=== PATIENT | male | born 1960 | race Caucasian/White ===

== ENCOUNTER 2024-02-03 12:31 | Inpatient (IN) | payer MEDICAID ==
[~2024-02-03] VITALS: Ht 167.6 cm; Wt 74.8 kg
[~2024-02-03 12:31] MED LIST: ASPI-1406 PO; ATOR20TA MT; CLOP75TA33 PO; DULA1.5P SUBCUT; GABA-532 MT; METF-416 PO; SULF1TAB48 MT
[2024-02-03 12:34] VITALS: O2SAT 98
[2024-02-03 13:32] LABS: BASOPHILS % 0.9 % (0.0-2.0); EOSINOPHILS % 4.9 % (0.0-5.0); HEMATOCRIT. 30.7 % (42.0-52.0); HEMOGLOBIN. 10.2 g/dL (14.0-18.0); LYMPHOCYTES % 23.9 % (20.0-50.0); MEAN CORPUSCULAR HEMOGLOBIN 29.9 pg (28.0-32.0); MEAN CORPUSCULAR HGB CONC 33.2 g/dL (31.0-37.0); MEAN CORPUSCULAR VOLUME 90.1 fL (80.0-94.0); MEAN PLATELET VOLUME 7.7 fl (7.4-10.4); MONOCYTES % 6.8 % (2.0-8.0); NEUTROPHILS % 63.5 % (40.0-76.0); PLATELET 344 x1000/uL (130-400); RED BLOOD CELL COUNT 3.41 mill/uL (4.7-6.1); RED CELL DISTRIBUTION WIDTH 13.3 % (11.6-14.6); WHITE BLOOD COUNT 9.2 x1000/uL (4.5-11.0)
[2024-02-03 13:38] LABS: POTASSIUM 4.3 mEq/L (3.5-5.1)
[2024-02-03 13:39] LABS: CALCIUM 9.3 mg/dL (8.7-10.4)
[2024-02-03 14:02] LABS: CREATININE 2.7 mg/dL (0.6-1.3)
[2024-02-03] MEDS ORDERED: ACETAMINOPHEN 325MG TABLET PO PRN ×2 (15:30)
[2024-02-03] MEDS ORDERED: ONDANSETRON HCL 4MG/2ML INJ IV PRN (15:30)
[2024-02-03] MEDS ORDERED: DULA0.75 SUBCUT (15:40)
[2024-02-03] MEDS: CEFTRIAXONE 2GM/50ML 50 ML IV SCH (16:12)
[2024-02-03] MEDS ORDERED: DEXTROSE 50% WATER 50ML SYRINGE IV PRN (16:30)
[2024-02-03] MEDS ORDERED: HYDRALAZINE 20MG/ML VIAL IV PRN (16:30)
[2024-02-03] MEDS: GABAPENTIN 300MG CAPSULE PO SCH (17:00)
[2024-02-03 20:00] VITALS: BP 186/91; PULSE 73; RESP 18; TEMP 36.55848; O2SAT 98
[2024-02-03] MEDS: ATORVASTATIN CALCIUM 20MG TABLET PO SCH (20:19)
[2024-02-03] MEDS ORDERED: LISINOPRIL 10MG TABLET PO SCH (21:00)
[2024-02-03] MEDS: BLOOD SUGAR DIAGNOSTIC STRIP TEST SCH (21:56)
[2024-02-03] MEDS ORDERED: HYDRALAZINE HCL 25MG TABLET PO SCH (22:00)
[2024-02-03] MEDS: INSULIN LISPRO 100 UNITS/ML SUBCUT SCH (22:20)
[2024-02-03] MEDS: HYDRALAZINE 10 MG in SODIUM CHLORIDE 0.9% 49.5 ML IV PRN (22:21)
[2024-02-04 04:00] VITALS: BP 155/83; PULSE 84; RESP 19; TEMP 37.11408; O2SAT 97
[2024-02-04 07:49] LABS: BASOPHILS % 0.7 % (0.0-2.0); EOSINOPHILS % 4.9 % (0.0-5.0); HEMOGLOBIN. 9.9 g/dL (14.0-18.0); LYMPHOCYTES % 19.7 % (20.0-50.0); MEAN CORPUSCULAR HEMOGLOBIN 31.4 pg (28.0-32.0); MEAN CORPUSCULAR HGB CONC 35.2 g/dL (31.0-37.0); MEAN CORPUSCULAR VOLUME 89.2 fL (80.0-94.0); MONOCYTES % 8.3 % (2.0-8.0); NEUTROPHILS % 66.4 % (40.0-76.0); PLATELET 346 x1000/uL (130-400); RED BLOOD CELL COUNT 3.14 mill/uL (4.7-6.1); WHITE BLOOD COUNT 8.6 x1000/uL (4.5-11.0)
[2024-02-04 07:58] LABS: CARBON DIOXIDE 24 mEq/L (21-32); CHLORIDE 111 mEq/L (98-107); SODIUM 143 mEq/L (136-145)
[2024-02-04 07:59] LABS: CALCIUM 9.1 mg/dL (8.7-10.4)
[2024-02-04 08:00] VITALS: BP 145/77; PULSE 80; RESP 18; TEMP 36.89184; O2SAT 96
[2024-02-04 08:03] LABS: IRON 50 ug/dL (65-175)
[2024-02-04 08:04] LABS: CREATININE 2.6 mg/dL (0.6-1.3); GLUCOSE 163 mg/dL (70-105); UREA NITROGEN BLOOD 25 mg/dL (9-23)
[2024-02-04 08:06] LABS: PHOSPHORUS 3.3 mg/dL (2.5-4.9); TOTAL IRON BINDING CAPACITY 285 ug/dl (250-425)
[2024-02-04] MEDS: ASPIRIN 81MG EC TABLET PO SCH (10:03)
[2024-02-04] MEDS: CLOPIDOGREL 75MG TABLET PO SCH (10:03)
[2024-02-04] MEDS: AMLODIPINE 10MG TABLET PO SCH (10:04)
[2024-02-04] MEDS: LISINOPRIL 10MG TABLET PO SCH (10:04)
[2024-02-04] MEDS: MAGNESIUM 2 G PREMIX 50 ML IV NR (10:43)
[2024-02-04 12:00] VITALS: BP 157/82; PULSE 82; RESP 18; TEMP 36.72516; O2SAT 97
[2024-02-04] MEDS ORDERED: LISINOPRIL 10MG TABLET PO SCH (12:30)
[2024-02-04] MEDS: SODIUM CHLORIDE 0.9% 1,000 ML IV SCH (14:39)
[2024-02-04] MEDS: ENOXAPARIN 30MG/0.3ML SYR SUBCUT SCH (15:46)
[2024-02-04 16:00] VITALS: BP 156/84; PULSE 76; RESP 18; TEMP 36.72516; O2SAT 97
[2024-02-04] MEDS: CEFTRIAXONE 2GM/50ML 50 ML IV SCH (17:35)
[2024-02-04 20:00] VITALS: BP 143/76; PULSE 76; RESP 17; TEMP 36.78072; O2SAT 98
[2024-02-04] MEDS: HYDRALAZINE HCL 10MG TABLET PO SCH (20:31)
[2024-02-05] VITALS: BP 145/74; PULSE 73; RESP 19; TEMP 36.78072; O2SAT 99
[2024-02-05 01:06] LABS: CLARITY URINE CLEAR (CLEAR); COLOR URINE YELLOW (YELLOW); GLUCOSE URINE NEGATIVE (NEGATIVE); KETONES URINE NEGATIVE (NEGATIVE); LEUKOCYTE ESTERASE URINE NEGATIVE (NEGATIVE); NITRITE URINE NEGATIVE (NEGATIVE); OCCULT BLOOD URINE NEGATIVE (NEGATIVE); PROTEIN URINE 1+ (NEGATIVE); UROBILINOGEN URINE 0.2 E.U./dL (0.2-1.0)
[2024-02-05 01:19] LABS: SODIUM URINE RANDOM 106 mEq/L; WBC URINE 0-2 /hpf (0-2)
[2024-02-05 01:20] LABS: BACTERIA URINE NONE SEEN; RBC URINE 0-2 /hpf (0-2); SQUAMOUS EPITHELIAL CELL URINE NONE SEEN /lpf (RARE/1+)
[2024-02-05 01:26] LABS: *AMPHETAMINES SCREEN URINE NEGATIVE (NEGATIVE); *BARBITURATES SCREEN URINE NEGATIVE (NEGATIVE); *BENZODIAZEPINES SCREEN URINE NEGATIVE (NEGATIVE); *COCAINE SCREEN URINE NEGATIVE (NEGATIVE); CANNABINOID URINE SCREEN NEGATIVE (NEGATIVE); CREATININE URINE RANDOM 57.7 mg/dL; ECSTASY MDMA SCREEN URINE NEGATIVE (NEGATIVE); METHADONE URINE SCREEN NEGATIVE (NEGATIVE); OPIATES URINE SCREEN NEGATIVE (NEGATIVE); PHENCYCLIDINE URINE SCREEN NEGATIVE (NEGATIVE)
[2024-02-05 01:40] LABS: OSMOLALITY URINE 364 mOsm/kg (500-850)
[2024-02-05 04:00] VITALS: BP 159/83; PULSE 79; RESP 20; TEMP 37.00296; O2SAT 97
[2024-02-05] MEDS ORDERED: CEFT2VIA13 IV (04:53)
[2024-02-05 07:17] LABS: POTASSIUM 3.7 mEq/L (3.5-5.1)
[2024-02-05 07:18] LABS: CALCIUM 8.2 mg/dL (8.7-10.4)
[2024-02-05 07:19] LABS: HEMATOCRIT 27.2 % (42.0-52.0); HEMOGLOBIN 9.3 g/dL (14.0-18.0); MEAN CORPUSCULAR HEMOGLOBIN 30.5 pg (28.0-32.0); MEAN CORPUSCULAR HGB CONC 34.1 g/dL (31.0-37.0); MEAN CORPUSCULAR VOLUME 89.5 fL (80.0-94.0); PLATELET 326 x1000/uL (130-400); RED BLOOD CELL COUNT 3.03 mill/uL (4.7-6.1); WHITE BLOOD COUNT 8.1 x1000/uL (4.5-11.0)
[2024-02-05 07:22] LABS: CREATININE 2.4 mg/dL (0.6-1.3)
[2024-02-05 08:00] VITALS: BP 162/77; PULSE 76; RESP 20; TEMP 36.114; O2SAT 100
[2024-02-05 12:00] VITALS: BP 138/77; PULSE 77; RESP 20; TEMP 36.6696; O2SAT 100
[2024-02-05 16:00] VITALS: BP 147/74; PULSE 76; RESP 20; TEMP 36.22512; O2SAT 99
[2024-02-05 20:00] VITALS: BP 138/88; PULSE 82; RESP 18; TEMP 36.22512; O2SAT 98
[2024-02-06] VITALS: BP 152/77; PULSE 80; RESP 18; TEMP 36.114; O2SAT 100
[2024-02-06 04:00] VITALS: BP 167/82; PULSE 83; RESP 18; TEMP 36.28068; O2SAT 97
[2024-02-06] MEDS: CLONIDINE 0.1MG TABLET PO PRN (04:51)
[2024-02-06 05:00] VITALS: BP 128/59
== END 2024-02-06 10:00 | disposition left against medical advice (07) | DRG 469 ==
LOC: ER 12:31 → EDBEDREQ 14:47 → 6WST 17:48
PROVIDERS: ADMIT Internal Medicine; ATTEND Internal Medicine
DX: N17.0 Acute kidney failure with tubular necrosis (principal); E11.21 Type 2 diabetes mellitus with diabetic nephropathy; E11.40 Type 2 diabetes mellitus with diabetic neuropathy, unspecified; E11.319 Type 2 diabetes mellitus with unspecified diabetic retinopathy without macular edema; E11.51 Type 2 diabetes mellitus with diabetic peripheral angiopathy without gangrene; D64.9 Anemia, unspecified; I16.0 Hypertensive urgency; Z53.29 Procedure and treatment not carried out because of patient's decision for other reasons; I12.9 Hypertensive chronic kidney disease with stage 1 through stage 4 chronic kidney disease, or unspecified chronic kidney disease; N18.9 Chronic kidney disease, unspecified; Z79.2 Long term (current) use of antibiotics; Z79.4 Long term (current) use of insulin; Z99.3 Dependence on wheelchair
CPT/HCPCS: 36415; 76770; 80048; 80305; 81003; 82550; 82570; 82728; 82962; 83540; 83550; 83735; 83935; 84100; 84300; 85025; 85027; 93005; 99285; J0360; J0696; J1650; J1815; J3475; J7030